=== PATIENT | male | born 2000 | race Caucasian/White ===

== ENCOUNTER 2022-03-11 18:30 | Emergency (ER) | payer BC ==
[~2022-03-11] VITALS: Ht 160 cm; Wt 59.9 kg
[2022-03-11 18:43] VITALS: BP 123/68
[2022-03-11] MEDS ORDERED: HYDROcodone/APAP 10/325 MG 1 TAB TAB PO PRN (18:55)
[2022-03-11] MEDS ORDERED: NACL 0.9% 1,000 ML IV ONE (19:00)
[2022-03-11] MEDS ORDERED: ONDANSETRON 4 MG/2 ML VIAL IVP ONE (19:00)
[2022-03-11] MEDS ORDERED: MORPHINE SULFATE 4 MG/ML SYR IVP ONE (19:00)
--- NOTE | 2022-03-11 19:01 | NUR ---
22y/o male presents to ED with c/o N/V and RLQ ABD pain xToday. Pt reports daughter having a cold with similar symptoms, had 10 episodes of vomiting, RLQ ABD pain worsens with movement and palpation, describes pain as pressure like rating 6/10 on pain scale. Pt states he took DayQuil and X-L3 with no relief. Pt denies UTI symptoms, and diarrhea.
--- NOTE | 2022-03-11 19:14 | NUR ---
Pt report given to Nimesh LEONARD. Transfer of care at this time.
[2022-03-11 19:16] LABS: APPEARANCE,URINE CLEAR (CLEAR); BILIRUBIN,URINE 1+ (NEGATIVE); BLOOD, URINE NEGATIVE (NEGATIVE); COLOR,URINE DARK YELLOW (YELLOW); LEUKOCYTE ESTERASE ,URINE NEGATIVE (NEGATIVE); NITRITE, URINE NEGATIVE (NEGATIVE); PH,URINE 6.5 (5.0-9.0); UGLUCOSE NEGATIVE (NEGATIVE)
[2022-03-11 19:18] LABS: BASOPHILS # (AUTO) 0.1 K/uL (0.00-0.22); BASOPHILS % (AUTO) 0.5 % (0.0-2.0); HEMATOCRIT 46.6 % (36-52); HEMOGLOBIN 16.5 g/dL (12.0-18.0); LYMPHOCYTES # (AUTO) 0.4 K/uL (2.0-11.5); LYMPHOCYTES % (AUTO) 2.9 % (20.5-51.1); MEAN CORPUSCULAR HEMOGLOBIN 30 pg (27-31); MEAN CORPUSCULAR HGB CONC 35 g/dL (33-37); MEAN CORPUSCULAR VOLUME 84.9 fL (80-94); MONOCYTES # (AUTO) 0.5 K/uL (0.8-1.0); MONOCYTES % (AUTO) 3.8 % (1.7-9.3); NEUTROPHILS # (AUTO) 11.8 K/uL (1.8-7.7); NEUTROPHILS % (AUTO) 92.8 % (42.2-75.2); PLATELET COUNT (AUTO) 164 K/uL (140-450); RED BLOOD CELL COUNT(AUTO) 5.49 MIL/uL (4.20-6.10); RED CELL DISTRIBUTION WIDTH 13.1 % (11.6-13.7); WHITE BLOOD COUNT (AUTO) 12.7 K/uL (4.8-10.8)
[2022-03-11 19:23] LABS: RBC,URINE 0-5 /HPF (0-5); WBC,URINE 0-5 /HPF (0-5)
[2022-03-11 19:24] LABS: FINE GRANULAR CASTS,URINE 0-10 /LPF (None Seen)
[2022-03-11 19:32] LABS: ALBUMIN 4.4 g/dL (3.4-5.0); ANION GAP 17.8 (8-16); CARBON DIOXIDE 25.8 mmol/L (21-32); CREATININE 1.1 mg/dL (0.6-1.3); POTASSIUM 3.6 mmol/L (3.5-5.1); TOTAL BILIRUBIN 0.8 mg/dL (0.0-1.0)
[2022-03-11] MEDS ORDERED: HYDROcodone/APAP 5/325 MG 1 TAB TAB PO ONE (19:55)
--- NOTE | 2022-03-11 20:30 | NUR ---
PT TAKEN TO CT
--- NOTE | 2022-03-11 20:52 | NUR ---
Patient lying in bed, A/Ox4, chest rise and fall symmetrical, no s/s of distress.
--- NOTE | 2022-03-11 21:50 | NUR ---
Patient lying in bed, A/Ox4, chest rise and fall symmetrical, no s/s of distress.
[2022-03-11] MEDS ORDERED: ONDA-188 PO (22:04)
[2022-03-11] MEDS ORDERED: BEN10 PO (22:04)
[2022-03-11 22:27] VITALS: BP 97/56
== END 2022-03-11 22:34 | disposition home or self-care (01) ==
LOC: MED 18:30
DX: R10.31 Right lower quadrant pain (principal); R11.2 Nausea with vomiting, unspecified; R05.9 Cough, unspecified; Z20.822 Contact with and (suspected) exposure to COVID-19
CPT/HCPCS: 36415; 74177; 80053; 81001; 83690; 85025; 87426; 96361; 96374; 99285; J2405; J7030; Q9967; J2270

== ENCOUNTER 2022-05-03 22:58 | Emergency (ER) | payer BC ==
[~2022-05-03] VITALS: Ht 160 cm; Wt 63.5 kg
[~2022-05-03 22:58] MED LIST: BEN10 PO; ONDA-188 PO
[2022-05-03 23:05] VITALS: BP 114/76
--- NOTE | 2022-05-03 23:08 | NUR ---
TO LOBBY A/W BED AMBULATORY
[2022-05-04] MEDS ORDERED: ONDANSETRON 4 MG TAB PO ONE (00:50)
[2022-05-04] MEDS ORDERED: ONDA-188 SL (01:43)
--- NOTE | 2022-05-04 01:46 | NUR ---
PT PROVIDED WITH D/C INSTRUCTIONS AND MEDICATION ADMINISTRATION INFORMATION BY DR. PARIS. RX OF ZOFRAN PROVIDED.
== END 2022-05-04 01:46 | disposition home or self-care (01) ==
LOC: MED 22:58
DX: A08.4 Viral intestinal infection, unspecified (principal); R11.2 Nausea with vomiting, unspecified; Z79.899 Other long term (current) drug therapy
CPT/HCPCS: 99283; Q0162

== ENCOUNTER 2022-10-18 22:38 | Emergency (ER) | payer BC ==
[~2022-10-18] VITALS: Ht 160 cm; Wt 63.5 kg
[~2022-10-18 22:38] MED LIST changes: +ONDA-188 SL
[2022-10-18 22:48] VITALS: BP 106/57
--- NOTE | 2022-10-18 22:48 | NUR ---
@R ear pain radiated to jaw and head 11/16 from swimming x1.
--- NOTE | 2022-10-18 22:53 | NUR ---
pt went to lobby
[2022-10-18] MEDS ORDERED: OFLO5SOL27 RIGHT EAR (23:35)
[2022-10-18] MEDS ORDERED: AMOX500C25 PO (23:35)
--- NOTE | 2022-10-18 23:45 | NUR ---
Patient discharged with v/s stable. Written and verbal after care instructions given and explained. Patient alert, oriented and verbalized understanding of instructions. Ambulatory with steady gait. All questions addressed prior to discharge. ID band removed. Patient advised to follow up with PMD. Rx of amoxicilin, floxin ot given. Patient educated on indication of medication including possible reaction and side effects. Opportunity to ask questions provided and answered.
== END 2022-10-18 23:45 | disposition home or self-care (01) ==
LOC: MED 22:38
DX: H60.91 Unspecified otitis externa, right ear (principal); Z79.899 Other long term (current) drug therapy
CPT/HCPCS: 99283

== ENCOUNTER 2023-08-31 22:15 | Emergency (ER) | payer BC ==
[~2023-08-31] VITALS: Ht 160 cm; Wt 65.8 kg
[~2023-08-31 22:15] MED LIST changes: +AMOX500C25 PO; +OFLO5SOL27 RIGHT EAR
[2023-08-31 22:25] VITALS: BP 126/76; PULSE 89; RESP 18; TEMP 97.6; O2SAT 98
== END 2023-09-01 02:12 | disposition home or self-care (01) ==
LOC: MED 22:15
DX: G44.209 Tension-type headache, unspecified, not intractable (principal); Z79.899 Other long term (current) drug therapy
CPT/HCPCS: 70450; 99284

== ENCOUNTER 2024-01-08 20:38 | Emergency (ER) | payer BC ==
[~2024-01-08] VITALS: Ht 160 cm; Wt 68.0 kg
[2024-01-08 21:45] VITALS: BP 123/81; PULSE 65; RESP 17; TEMP 98.1; O2SAT 97
[2024-01-08] MEDS ORDERED: MECL-303 PO (23:13)
--- NOTE | 2024-01-08 23:18 | NUR ---
PA FERNANDEZ EVALUATING PT IN TRIAGE.
== END 2024-01-08 23:26 | disposition home or self-care (01) ==
LOC: MED 20:38
DX: R42 Dizziness and giddiness (principal); F41.0 Panic disorder [episodic paroxysmal anxiety]; R03.0 Elevated blood-pressure reading, without diagnosis of hypertension; Z79.899 Other long term (current) drug therapy
CPT/HCPCS: 71045; 82948; 93005; 99283

== ENCOUNTER 2024-01-25 15:27 | Emergency (ER) | payer BC ==
[~2024-01-25] VITALS: Ht 160 cm; Wt 68.0 kg
[~2024-01-25 15:27] MED LIST changes: +MECL-303 PO
[2024-01-25 15:33] VITALS: BP 114/74; PULSE 108; RESP 18; TEMP 99.8; O2SAT 99
[2024-01-25 16:35] LABS: FLU A ANTIGEN negative (NEGATIVE); FLU B ANTIGEN NEGATIVE (NEGATIVE)
[2024-01-25] MEDS ORDERED: SUD30 PO (17:00)
[2024-01-25] MEDS ORDERED: ONDA-188 SL (17:00)
[2024-01-25] MEDS ORDERED: IBUP-2213 PO (17:00)
[2024-01-25] MEDS: ONDANSETRON 4 MG ODT PO ONE (17:12)
== END 2024-01-25 17:24 | disposition home or self-care (01) ==
LOC: MED 15:27
DX: B34.9 Viral infection, unspecified (principal); Z20.822 Contact with and (suspected) exposure to COVID-19; Z79.899 Other long term (current) drug therapy
CPT/HCPCS: 87426; 87804; 99283; Q0162